=== PATIENT | female | born 1995 | race Caucasian/White ===

== ENCOUNTER 2018-06-30 18:34 | Inpatient (IN) | payer MEDICAID ==
[2018-06-30 22:14] LABS: ADD MAN DIFF? NO
[2018-06-30] MEDS: LACTATED RINGER'S 1,000 ML IV (22:16)
[2018-06-30] MEDS ORDERED: PHENYLephrine (100 MCG/ML) 10ML SYG (22:21)
[2018-06-30] MEDS ORDERED: morphine SULFATE/PF (10 MG/10 ML) INJ (22:21)
[2018-06-30] MEDS ORDERED: FENTAnyl 50 MCG/ML VIAL (22:21)
[2018-06-30] MEDS ORDERED: ONDANSETRON 4 MG INJ (22:21)
[2018-06-30] MEDS ORDERED: DEXAMETHASONE 4 MG/ML 1 ML INJ (22:22)
[2018-06-30] MEDS ORDERED: DIPHENHYDRAMINE 50 MG INJ (22:22)
[2018-06-30] MEDS ORDERED: MISOPROSTOL 200 MCG TAB PR (22:30)
[2018-06-30] MEDS ORDERED: DIPHENHYDRAMINE 50 MG INJ IV (22:30)
[2018-06-30] MEDS ORDERED: OXYTOCIN 30 UNITS/LR 500 ML IV (22:30)
[2018-06-30] MEDS ORDERED: ZOLPIDEM 5 MG TAB PO (22:30)
[2018-06-30] MEDS ORDERED: ONDANSETRON 4 MG INJ IV (22:30)
[2018-06-30] MEDS ORDERED: NALOXONE (0.4 MG/ML) INJ IV (22:30)
[2018-06-30] MEDS ORDERED: HYDROmorphONE 0.5 MG/0.5 ML SYG IV (22:30)
[2018-06-30] MEDS ORDERED: CARBOPROST 250 MCG INJ IM (22:30)
[2018-06-30] MEDS ORDERED: METHYLERGONOVINE 0.2 MG INJ IM (22:30)
[2018-06-30 22:36] LABS: INR 0.85; PROTIME 11.7 Sec (11.9-14.9); PT RATIO 0.9
[2018-06-30 22:37] LABS: PARTIAL THROMBOPLASTIN TIME 22.3 Sec (23.0-35.0)
[2018-06-30 22:57] LABS: BASOPHILS % 0.2 % (0.0-2.0); EOSINOPHILS # 0.1 10^3/ul (0.0-0.5); EOSINOPHILS % 0.6 % (0.0-7.0); HEMATOCRIT 34.3 % (37.0-47.0); LYMPHOCYTES # 1.6 10^3/ul (0.8-2.9); LYMPHOCYTES % 16.9 % (15.0-51.0); MEAN CORPUSCULAR HEMOGLOBIN 25.9 pg (29.0-33.0); MEAN CORPUSCULAR HGB CONC 32.1 g/dl (32.0-37.0); MEAN CORPUSCULAR VOLUME 80.9 fl (82.0-101.0); MEAN PLATELET VOLUME 11.9 fl (7.4-10.4); MONOCYTE # 0.5 10^3/ul (0.3-0.9); MONOCYTES % 5.3 % (0.0-11.0); NEUTROPHIL # 7.4 10^3/ul (1.6-7.5); NEUTROPHILS % 76.5 % (39.0-77.0); PLATELET COUNT 256 10^3/UL (140-415); RED BLOOD COUNT 4.24 10^6/ul (4.20-5.40); RED CELL DISTRIBUTION WIDTH 12.1 % (11.5-14.5)
[2018-06-30 22:57] LABS: WHITE BLOOD COUNT 9.7 10^3/ul (4.8-10.8)
[2018-06-30] MEDS: CEFAZOLIN 2 GM/50 ML (PMX) 50 ML IVPB (23:50)
[2018-07-01] MEDS ORDERED: OXYTOCIN 30 UNITS/LR 500 ML IV ×2 (00:01→03:30)
[2018-07-01] MEDS: OXYTOCIN 30 UNITS/LR 500 ML IV ×2 (00:23→04:34)
[2018-07-01] MEDS: HYDROmorphONE 0.5 MG/0.5 ML SYG IV (01:13)
[2018-07-01] MEDS: KETOROLAC 30 MG INJ IV ×4 (02:00→20:30)
[2018-07-01] MEDS: DEXTROSE 5%-LR 1,000 ML IV (03:21)
[2018-07-01] MEDS ORDERED: CARBOPROST 250 MCG INJ IM (03:30)
[2018-07-01] MEDS ORDERED: METHYLERGONOVINE 0.2 MG INJ IM (03:30)
[2018-07-01] MEDS ORDERED: MAGNESIUM HYDROXIDE 30ML CUP PO (03:30)
[2018-07-01] MEDS ORDERED: METHYLERGONOVINE 0.2 MG TAB PO (03:30)
[2018-07-01] MEDS ORDERED: MISOPROSTOL 200 MCG TAB PR (03:30)
[2018-07-01] MEDS: LACTATED RINGER'S 1,000 ML IV ×3 (06:05→22:05)
[2018-07-01] MEDS: SENNA/DOCUSATE NA (8.6MG/50MG) TAB PO ×2 (08:03→20:29)
[2018-07-01 16:44] LABS: RAPID PLASMA REAGIN NONREACTIVE (NR)
[2018-07-01] MEDS: IBUPROFEN 800 MG TAB PO (23:00)
[2018-07-02] MEDS: LANOLIN HPA 1 PKT TOP (02:36)
[2018-07-02] MEDS: HYDROCODONE/APAP (5/325) TAB NGT ×2 (02:36→10:08)
[2018-07-02] MEDS: IBUPROFEN 800 MG TAB PO ×3 (05:37→22:03)
[2018-07-02] MEDS: LACTATED RINGER'S 1,000 ML IV (06:05)
[2018-07-02 08:35] LABS: ADD MAN DIFF? NO
[2018-07-02 08:43] LABS: WHITE BLOOD COUNT 9.8 10^3/ul (4.8-10.8)
[2018-07-02 08:43] LABS: BASOPHILS % 0.3 % (0.0-2.0); EOSINOPHILS # 0.1 10^3/ul (0.0-0.5); EOSINOPHILS % 0.6 % (0.0-7.0); HEMATOCRIT 29.2 % (37.0-47.0); HEMOGLOBIN 9.2 g/dl (12.0-16.0); LYMPHOCYTES # 2.1 10^3/ul (0.8-2.9); MEAN CORPUSCULAR HEMOGLOBIN 25.3 pg (29.0-33.0); MEAN CORPUSCULAR HGB CONC 31.5 g/dl (32.0-37.0); MEAN CORPUSCULAR VOLUME 80.4 fl (82.0-101.0); MEAN PLATELET VOLUME 11.7 fl (7.4-10.4); MONOCYTE # 0.6 10^3/ul (0.3-0.9); MONOCYTES % 5.6 % (0.0-11.0); PLATELET COUNT 217 10^3/UL (140-415); RED BLOOD COUNT 3.63 10^6/ul (4.20-5.40); RED CELL DISTRIBUTION WIDTH 12.3 % (11.5-14.5)
[2018-07-02] MEDS: SENNA/DOCUSATE NA (8.6MG/50MG) TAB PO ×2 (09:00→22:04)
[2018-07-02] MEDS ORDERED: HYDROCODONE/APAP (5/325) TAB NGT (11:00)
[2018-07-02] MEDS ORDERED: DIPHTH/TET/ACEL PERTUSS (ADULT) 0.5 ML VIAL IM* (11:00)
[2018-07-02] MEDS: HYDROCODONE/APAP (5/325) TAB GTB ×2 (13:35→22:04)
[2018-07-03] MEDS: IBUPROFEN 800 MG TAB PO ×2 (05:37→13:25)
[2018-07-03] MEDS: HYDROCODONE/APAP (5/325) TAB GTB ×2 (05:37→13:25)
[2018-07-03] MEDS: SENNA/DOCUSATE NA (8.6MG/50MG) TAB PO (09:00)
[2018-07-04] MEDS ORDERED: DIPHTH/TET/ACEL PERTUSS (ADULT) 0.5 ML VIAL IM* (09:00)
[2018-07-04] MEDS ORDERED: MEASLES,MUMPS,RUBELLA VACCINE INJ SC* (09:00)
== END 2018-07-03 16:00 | disposition home or self-care (01) | DRG 788 ==
LOC: OBT 18:34 → L-D 07-01 00:23 → PP1 07-01 03:22 → OBT 22:00 → L-D 22:00
PROVIDERS: Obstetrics & Gynecology
PROC: 10D00Z1 Extraction of Products of Conception, Low, Open Approach (ICD-10-PCS; principal; 2018-07-01)
DX: O32.8XX0 Maternal care for other malpresentation of fetus, not applicable or unspecified (principal); O34.03 Maternal care for unspecified congenital malformation of uterus, third trimester; Q51.3 Bicornate uterus; Z3A.37 37 weeks gestation of pregnancy; Z37.0 Single live birth
CPT/HCPCS: 76815; 76818; 85025; 85610; 85730; 86592; 86850; 86900; 86901